=== PATIENT | male | born 1995 | race Caucasian/White ===

== ENCOUNTER 2021-01-20 12:36 | Emergency (ER) | payer OTHER ==
[~2021-01-20 12:36] MED LIST: BACTROBAN OINT22 GM EXT; IBUPROFEN600 MG PO
[2021-01-20] MEDS ORDERED: IBUPROFEN600 MG PO (14:29)
== END 2021-01-20 15:14 | disposition home or self-care (01) ==
LOC: ER1 12:36
DX: L98.9 Disorder of the skin and subcutaneous tissue, unspecified (principal); M79.89 Other specified soft tissue disorders
CPT/HCPCS: 73564; 96372; 99283; J1885